=== PATIENT | female | born 1940 | race Two or more races ===

== ENCOUNTER 2016-05-22 11:01 | Inpatient (IN) | payer MEDICARE, MEDICAID ==
[~2016-05-22] VITALS: Ht 154.9 cm; Wt 49.4 kg
[~2016-05-22 11:01] MED LIST: ACETAMINOPHEN-1 EAC1 ORAL; ASPIRIN EC81 MG ORAL; DEXILANT60 MG ORAL; ECOTRIN81 MG PO; IBUPROFEN600 MG ORAL; LOVASTATIN20 MG ORAL; MELOXICAM15 MG PO; METFORMIN HCL500 M1 ORAL; OMEPRAZOLE40 M1 ORAL; OSCAL D500 MG PO; OYSTER SHELL C500 MG PO; PENTOXIFYLLINE400 MG PO; TAMIFLU75 MG ORAL; VALSARTAN-HCTZ1 EAC1 ORAL; ZOFRAN4 M3 ORAL
[2016-05-22 12:15] VITALS: BP 109/45
--- NOTE | 2016-05-22 12:16 | Diagnostic Imaging Report ---
Indications: Shortness of breath Technique: Portable AP chest Findings: Comparison: August 1815 Cardiac silhouette remains normal in size. Pulmonary vasculature remains within normal limits. Lungs and pleura remain clear. Left lung volume remains decreased compared to right. Mild calcification and elongation of the aortic arch, sternal wires again noted. IMPRESSION: No evidence of acute disease, unchanged Stable chronic changes as described
--- NOTE | 2016-05-22 12:30 | Emergency Room Report ---
History of Present Illness General Chief Complaint: Dizziness Source: Patient Present Illness HPI 75 YOF with 2-3 weeks intermittent right arm, chest, and left arm pain associated with dizziness. Dizziness is intermittent, sometimes happens with ambulation/exertion. Currently asymptomatic. Denies fever/chills, cough, chest pain, SOB, abd pain. History of HTN. Denies other medical problems. Endorses "chest surgery" "long time ago." Not on ASA, Plavix. Allergies: Coded Allergies: No Known Allergies (Verified , 07/23/08) Patient History Past Medical History: HTN Past Surgical History: none Pertinent Family History: none Social History: Denies: alcohol use, drug use, smoking Now: No Immunizations: UTD Reviewed Nursing Documentation: PMH: Agreed, PSxH: Agreed Nursing Documentation-PMH Past Medical History: No History, Except For Hx Hypertension: Yes Hx Diabetes: Yes Hx Cancer: No Hx Gastrointestinal Problems: Yes - cholelithiasis Hx Neurological Problems: No Review of Systems All Other Systems: negative except mentioned in HPI Physical Exam Vital Signs Date Time Temp Pulse Resp B/P Pulse Ox O2 Delivery O2 Flow Rate FiO2 05/22/16 11:40 98.1 81 18 103/44 95 Room Air Sp02 EP Interpretation: reviewed, normal General Appearance: normal inspection, well appearing, no apparent distress, alert, GCS 15, non-toxic Head: normocephalic, atraumatic Eyes: bilateral eye EOMI, bilateral eye PERRL ENT: normal ENT inspection, hearing grossly normal, normal voice Neck: normal inspection, full range of motion, supple, no bony tend Respiratory: normal inspection, lungs clear, normal breath sounds, no respiratory distress, no retraction, no wheezing Cardiovascular #1: normal peripheral pulses, regular rate, rhythm, no edema Gastrointestinal: normal inspection, normal bowel sounds, non tender, soft, no guarding, no hernia Genitourinary: no CVA tenderness Musculoskeletal: normal inspection, back normal, normal range of motion, Khurram' s Sign negative Neurologic: normal inspection, alert, oriented x3, responsive, 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 I attest that this information is true, accurate and complete to the best of my knowledge. I understand that any falsification, omission, or concealment of material fact may subject me to administrative, civil, or criminal liability. This patient warrants hospital admission for extreme of age and has a condition that cannot be treated as outpatient. Diagnostic Impression: Primary Impression: Dizziness ER Course 75 YOF with intermittent dizzienss for 2-3 weeks. VSS. Afebrile. ECG is NSR. labs: Troponin0. Leuks normal. H&H nomral. SerumCr is baseline. CXR: No PTX, congestion effusion, PNA patient remains asymptomatic Dizziniess of unknown origin Endorsed to Dr Apodaca for med/surg admit at 133pm EKG Diagnostic Results Rate: normal Rhythm: NSR ST Segments: no acute changes ASA given to the pt in ED: No Rhythm Strip Diag. Results EP Interpretation: yes Rate: 74 Rhythm: NSR, no PVC's, no ectopy Chest X-Ray Diagnostic Results EP Interpretation: Yes Findings: no consolidation, no effusion, no pneumothorax, no acute cardiopulmonary disease Number of Views: 1 Last Vital Signs Date Time Temp Pulse Resp B/P Pulse Ox O2 Delivery O2 Flow Rate FiO2 05/22/16 11:40 98.1 81 18 103/44 95 Room Air Status: improved Disposition: ADMITTED INPATIENT Referrals: NON PHYSICIAN (PCP) CRISTI SCHULTE M.D. May 22, 2016 12:30
[2016-05-22 12:39] LABS: BASOPHILS % (AUTO) 1.1 % (0.0-2.0); EOSINOPHILS % (AUTO) 0.1 % (0.0-3.0); LYMPHOCYTES % (AUTO) 23.9 % (20.0-45.0); MEAN CORPUSCULAR HEMOGLOBIN 36.1 PG (27.0-31.0); MEAN CORPUSCULAR VOLUME 103 FL (80-99); MEAN PLATELET VOLUME 8.3 FL (6.5-10.1); MONOCYTES % (AUTO) 15.1 % (1.0-10.0); NEUTROPHILS % (AUTO) 59.7 % (45.0-75.0); PLATELET COUNT 154 K/UL (150-450); RED BLOOD COUNT 3.27 M/UL (4.20-5.40); WHITE BLOOD COUNT 7.8 K/UL (4.8-10.8)
[2016-05-22 12:50] LABS: ALANINE AMINOTRANSFERASE 13 U/L (3-33); ALBUMIN/GLOBULIN RATIO 1.4 (1.0-2.7); ANION GAP 18 (5-15); ASPARTATE AMINO TRANSFERASE 9 U/L (5-40); CALCIUM 8.8 mg/dL (8.6-10.2); CARBON DIOXIDE 22 mEQ/L (20-30); CHLORIDE 96 mEQ/L (98-107); CREATININE 1.2 mg/dL (0.5-0.9); HEMOLYSIS 4; POTASSIUM 3.4 mEQ/L (3.4-4.9); SODIUM 136 mEQ/L (135-145)
[2016-05-22 12:51] LABS: TROPONIN I < 0.30 ng/mL (<=0.30)
[2016-05-22 13:01] LABS: CKMB 1.6 ng/mL (< 3.8)
[2016-05-22] MEDS ORDERED: Morphine Sulfate 2mg/ml Inj IVP PRN (15:00)
[2016-05-22] MEDS ORDERED: Nitroglycerin Subl 0.4mg tab (Bottle Of 25) SL PRN (15:00)
[2016-05-22] MEDS ORDERED: DuoNeb 0.5-3(2.5)mg/3ml neb HHN PRN (15:00)
[2016-05-22] MEDS ORDERED: Promethazine/Codeine 5ml UD ORAL PRN ×2 (15:00→15:45)
[2016-05-22] MEDS ORDERED: Mylanta II UD 30ml ORAL PRN (15:00)
[2016-05-22] MEDS ORDERED: LORazepam Inj 2mg/ml 1ml IV PRN (15:00)
--- NOTE | 2016-05-22 15:52 | History and Physical ---
History of Present Illness General Date patient seen: May 22, 2016 Reason for Hospitalization: Dizziness Present Illness HPI 75 year old female with hx of HTN, DM, presented to [facility] [place] with CC of 2-3 weeks intermittent right arm, chest, and left arm pain associated with dizziness. Dizziness is intermittent, sometimes happens with ambulation/exertion. Patient also was complaining of flu like symptoms and dry cough and being feverish at times. Allergies: Coded Allergies: No Known Allergies (Verified , 07/23/08) Medication History Scheduled Aspirin Ec* (Aspirin Ec*), 81 MG ORAL DAILY Calcium Carbonate (Oyster Shell Calcium), 500 MG PO BID, (Reported) Ibuprofen* (Motrin*), 400 MG ORAL FOUR TIMES A DAY Lovastatin (Lovastatin), 20 MG ORAL BEDTIME, (Reported) Metformin Hcl* (Metformin Hcl*), 500 MG ORAL TWICE A DAY, (Reported) Valsartan/Hydrochlorothiazide 160-12.5 (Valsartan-Hctz 160-12.5 Mg Tab), 1 TAB ORAL DAILY, (Reported) Patient History Healthcare decision maker Resuscitation status Advanced Directive on File Past Medical/Surgical History Past Medical/Surgical History: (1) DM (diabetes mellitus screen) (2) HTN (hypertension) (3) Hx of cholecystectomy (4) S/P CABG (coronary artery bypass graft) (5) Cerebrovascular accident (CVA) Review of Systems All Other Systems: negative except mentioned in HPI Physical Exam General Appearance: WD/WN Lines, tubes and drains: peripheral, central line HEENT: normocephalic, atraumatic Neck: non-tender, normal alignment Respiratory/Chest: chest wall non-tender, lungs clear Breasts: no masses Cardiovascular/Chest: normal peripheral pulses, normal rate Abdomen: normal bowel sounds, non tender Genitourinary/Rectal: normal genital exam, normal rectal exam Extremities: normal range of motion Skin Exam: normal pigmentation Neurologic: 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 II-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 grossly normal Last 24 Hour Vital Signs Date Time Temp Pulse Resp B/P Pulse Ox O2 Delivery O2 Flow Rate FiO2 05/22/16 13:28 60 16 116/57 98 Room Air 05/22/16 12:15 98.6 70 12 109/45 100 Room Air 05/22/16 11:40 98.1 81 18 103/44 95 Room Air Laboratory Tests Test 05/22/16 12:25 White Blood Count 7.8 K/UL (4.8-10.8) Red Blood Count 3.27 M/UL (4.20-5.40) L Hemoglobin 11.8 G/DL (12.0-16.0) L Hematocrit 33.8 % (37.0-47.0) L Mean Corpuscular Volume 103 FL (80-99) H Mean Corpuscular Hemoglobin 36.1 PG (27.0-31.0) H Mean Corpuscular Hemoglobin Concent 35.0 G/DL (32.0-36.0) Red Cell Distribution Width 13.0 % (11.6-14.8) Platelet Count 154 K/UL (150-450) Mean Platelet Volume 8.3 FL (6.5-10.1) Neutrophils (%) (Auto) 59.7 % (45.0-75.0) Lymphocytes (%) (Auto) 23.9 % (20.0-45.0) Monocytes (%) (Auto) 15.1 % (1.0-10.0) H Eosinophils (%) (Auto) 0.1 % (0.0-3.0) Basophils (%) (Auto) 1.1 % (0.0-2.0) Sodium Level 136 mEQ/L (135-145) Potassium Level 3.4 mEQ/L (3.4-4.9) Chloride Level 96 mEQ/L (98-107) L Carbon Dioxide Level 22 mEQ/L (20-30) Anion Gap 18 (5-15) H Blood Urea Nitrogen 20 mg/dL (7-23) Creatinine 1.2 mg/dL (0.5-0.9) H Estimat Glomerular Filtration Rate mL/min (>60) Glucose Level 145 mg/dL (74-106) H Calcium Level 8.8 mg/dL (8.6-10.2) Total Bilirubin 0.4 mg/dL (0.0-1.2) Aspartate Amino Transf (AST/SGOT) 9 U/L (5-40) Alanine Aminotransferase (ALT/SGPT) 13 U/L (3-33) Alkaline Phosphatase 56 U/L (35-104) Total Creatine Kinase 110 U/L (26-140) Creatine Kinase MB 1.6 ng/mL (< 3.8) Creatine Kinase MB Relative Index 1.4 Troponin I < 0.30 ng/mL (<=0.30) Total Protein 7.0 g/dL (6.6-8.7) Albumin 4.1 g/dL (3.5-5.2) Globulin 2.9 g/dL Albumin/Globulin Ratio 1.4 (1.0-2.7) Height (Feet): 5 Weight (Pounds): 109 Medications Current Medications Medications (Trade) Dose Ordered Sig/Alyse Route PRN Reason Start Time Stop Time Status Last Admin Dose Admin Acetaminophen (Tylenol) 650 mg Q4H PRN ORAL fever>100.5 05/22/16 14:00 06/21/16 13:59 Al Hydroxide/Mg Hydroxide (Mylanta II) 30 ml Q6H PRN ORAL dyspepsia 05/22/16 15:00 06/21/16 14:59 Albuterol/ Ipratropium (DuoNeb 0.5-3(2.5)mg/3ml) 3 ml Q4H PRN HHN Shortness of Breath 05/22/16 15:00 05/27/16 14:59 Clonidine HCl (Catapres) 0.1 mg Q4H PRN ORAL For High Blood Pressure 05/22/16 15:00 06/21/16 14:59 Dextrose (Dextrose 50%) STAT PRN IV Hypoglycemia 05/22/16 15:00 06/21/16 14:59 Dextrose/Sodium Chloride (D5 0.45% NS) 1,000 ml @ 50 mls/hr Q20H IV 05/22/16 16:00 06/21/16 15:59 Heparin Sodium (Porcine) (Heparin 5000 units/ml) 5,000 units EVERY 12 HOURS SUBQ 05/22/16 21:00 06/21/16 20:59 Insulin Aspart BEFORE MEALS AND HS SUBQ 05/22/16 16:30 06/21/16 16:29 Lorazepam (Ativan 2mg/ml 1ml) 0.5 mg Q4H PRN IV For Anxiety 05/22/16 15:00 05/29/16 14:59 Morphine Sulfate (Morphine Sulfate) 1 mg Q4H PRN IVP For Pain 7-10 05/22/16 15:00 05/29/16 14:59 Nitroglycerin (Ntg) 0.4 mg Q5M X 3 DOSES PRN SL Prn Chest Pain 05/22/16 15:00 06/21/16 14:59 Ondansetron HCl (Zofran) 4 mg Q6H PRN IVP Nausea & Vomiting 05/22/16 15:00 06/21/16 14:59 Polyethylene Glycol (Miralax) 17 gm HSPRN PRN ORAL Constipation 05/22/16 21:00 06/21/16 20:59 Promethazine HCl/ Codeine (Phenergan with Codeine) 5 ml Q4H PRN ORAL For Cough 05/22/16 15:00 06/21/16 14:59 Temazepam (Restoril) 15 mg HSPRN PRN ORAL Insomnia 05/22/16 21:00 05/29/16 20:59 Assessment/Plan Problem List: (1) Bronchitis ICD Codes: J40 - Bronchitis, not specified as acute or chronic SNOMED: 47844317 (2) Multiple complaints ICD Codes: R68.89 - Other general symptoms and signs SNOMED: 38458318 (3) Dizziness ICD Codes: R42 - Dizziness and giddiness SNOMED: 154797599, 744637699 (4) HTN (hypertension) ICD Codes: I10 - Essential (primary) hypertension SNOMED: 43732311 (5) DM (diabetes mellitus screen) ICD Codes: Z13.1 - Encounter for screening for diabetes mellitus SNOMED: 737445720, 879455665 (6) S/P CABG (coronary artery bypass graft) ICD Codes: Z95.1 - Presence of aortocoronary bypass graft SNOMED: 031419105, 505228677 Assessment/Plan respiratory treatment IV antibiotics check cultures/ sputum MRI of brain. neuro evaluation , Dr. Santoro notified. BRETT NERI May 22, 2016 15:51
[2016-05-22 16:00] VITALS: BP 103/49
[2016-05-22] MEDS: NovoLOG Insulin Flexpen SUBQ SCH ×2 (16:30→20:55)
[2016-05-22] MEDS: D5 1/2NS 1,000 ML IV SCH (17:29)
[2016-05-22] MEDS: DuoNeb 0.5-3(2.5)mg/3ml neb HHN SCH (19:34)
[2016-05-22] MEDS: Heparin 5000 units/ml inj SUBQ SCH (20:52)
[2016-05-22] MEDS ORDERED: Miralax 17gm pkt ORAL PRN (21:00)
[2016-05-22 21:02] VITALS: BP 105/48
[2016-05-23] VITALS: BP 119/54
[2016-05-23] MEDS: DuoNeb 0.5-3(2.5)mg/3ml neb HHN SCH ×3 (01:17→13:19)
[2016-05-23 04:00] VITALS: BP 109/51
[2016-05-23] MEDS: NovoLOG Insulin Flexpen SUBQ SCH ×3 (06:37→16:30)
[2016-05-23 07:00] LABS: BASOPHILS % (AUTO) 0.9 % (0.0-2.0); EOSINOPHILS % (AUTO) 0.2 % (0.0-3.0); LYMPHOCYTES % (AUTO) 22.3 % (20.0-45.0); MEAN CORPUSCULAR HEMOGLOBIN 35.2 PG (27.0-31.0); MEAN CORPUSCULAR HGB CONC 33.6 G/DL (32.0-36.0); MEAN CORPUSCULAR VOLUME 105 FL (80-99); MEAN PLATELET VOLUME 8.1 FL (6.5-10.1); MONOCYTES % (AUTO) 10.7 % (1.0-10.0); NEUTROPHILS % (AUTO) 65.8 % (45.0-75.0); PLATELET COUNT 144 K/UL (150-450); RED BLOOD COUNT 3.27 M/UL (4.20-5.40); RED CELL DISTRIBUTION WIDTH 12.7 % (11.6-14.8); WHITE BLOOD COUNT 6.9 K/UL (4.8-10.8)
[2016-05-23 07:03] LABS: PROTHROMBIN TIME 10.4 SEC (9.30-11.50)
[2016-05-23 07:38] LABS: ALANINE AMINOTRANSFERASE 11 U/L (3-33); ALBUMIN/GLOBULIN RATIO 1.4 (1.0-2.7); ANION GAP 15 (5-15); ASPARTATE AMINO TRANSFERASE 9 U/L (5-40); CARBON DIOXIDE 25 mEQ/L (20-30); CHLORIDE 99 mEQ/L (98-107); CHOLESTEROL 169 mg/dL (< 200); CHOLESTEROL/HDL RATIO 2.6 (3.3-4.4); HEMOLYSIS 3; LDL CHOLESTEROL (CALC.) 88 mg/dL (60-99); POTASSIUM 3.8 mEQ/L (3.4-4.9); SODIUM 139 mEQ/L (135-145); TOTAL PROTEIN 6.8 g/dL (6.6-8.7)
[2016-05-23 08:15] VITALS: BP 111/50
[2016-05-23] MEDS: Heparin 5000 units/ml inj SUBQ SCH (09:00)
[2016-05-23 12:15] VITALS: BP 139/52
[2016-05-23] MEDS: D5 1/2NS 1,000 ML IV SCH (12:35)
--- NOTE | 2016-05-23 13:35 | Diagnostic Imaging Report ---
Indication: Dizziness, vertigo, right-sided weakness Technique: sagittal T1 fast spin echo, axial T1 and T2 FLAIR PROPELLER, axial T2 FS PROPELLER, T2* GRE, axial diffusion weighted images, post contrast axial T1 FLAIR PROPELLER images. ADC and exponential ADC maps generated Comparison: 12/16/2015 Findings: . No abnormal areas of restricted diffusion to suggest acute infarction. No acute hemorrhage or edema. Punctate foci of susceptibility artifact are seen in the right frontal cortex, left lateral ventricular subependymal region, right inferior frontal lobe, all also evident previously. No mass effect nor midline shift. No abnormal contrast enhancement. There is minimal age-related enlargement of the ventricles and extra-axial CSF spaces. There is minimal periventricular deep white matter chronic ischemic change noted. Visualized orbits and sinuses are unremarkable. No significant interim change. Impression: Negative for acute intracranial bleed, mass effect, infarct, or contrast enhancing lesion Foci of old microhemorrhage seen on the GRE images, also previously reported. Mild age-related changes as described No significant change since prior study of 12/26/2015
--- NOTE | 2016-05-23 15:19 | Cardiology Report ---
APPROVED REPORT EXAM: Two-dimensional and M-mode echocardiogram with Doppler and color Doppler. INDICATION Left ventricular function M-Mode DIMENSIONS IVSd0.9 (0.7-1.1cm)Left Atrium (MM)3.2 (1.6-4.0cm) LVDd3.8 (3.5-5.6cm)Aortic Root2.3 (2.0-3.7cm) IVSs0.9 cm LVDs2.6 (2.5-4.0cm) PWs1.0 cm Normal left ventricular chamber size, systolic function and wall motion. Left ventricular ejection fraction estimated to be 60-65 %. Mild left ventricular hypertrophy. No evidence of pericardial fat or effusion. All other cardiac chamber sizes are within normal limits. Focal aortic valve sclerosis with adequate cusp excursion Thickened mitral valve leaflets with normal excursion. Mild mitral annulus and aortic root calcification. Pulmonic valve not well visualized. Normal tricuspid valve structure. IVC is normal in size with minimal physiologic collapse. RA pressure of 10mmHg. A color flow and spectral Doppler study was performed and revealed: Trace aortic regurgitation. Trace mitral regurgitation. Left ventricular diastolic dysfunction grade 1. Moderate tricuspid regurgitation. Tricuspid systolic velocities suggests peak right ventricular systolic pressure of 31 mmHg
[2016-05-23 16:31] VITALS: BP 112/54
--- NOTE | 2016-05-23 17:53 | Consultation ---
Consult Note Consult Note NEUROLOGY CONSULTATION: Full note dictated #[id number] Labyrinthine vertigo - Most probably BPV REC: Will arrington q AM and q HS. Mateo Santoro M.D., M.S.P.H. MATEO SANTORO May 23, 2016 17:53
[2016-05-23] MEDS ORDERED: D5 1/2NS 1000ml IV ONE (19:14)
[2016-05-23] MEDS ORDERED: Tubing IV Secondary IV ONE (19:14)
--- NOTE | 2016-05-24 01:59 | Consultation ---
DATE OF CONSULTATION: 05/23/2016 NEUROLOGY CONSULTATION CONSULTING PHYSICIAN: Rio Santoro M.D. REQUESTING PHYSICIAN: Jordon Apodaca M.D. HISTORY: The patient is a 75-year-old right-handed lady, who does have a past history of hypertension, diabetes mellitus, and coronary artery disease, status post coronary artery bypass graft. She was functioning relatively well until a few days ago when she started to have a feeling of being unwell, feverish, had a dry cough and in addition, started to have episodes of dizziness. The dizziness that she has is a sensation of the room spinning. The room spins for a few seconds and then stopped spontaneously. She denies any associated symptoms like blurry vision, double vision, problems with speech, problems with language, weakness on one side or the other or numbness on one side or the other. Since the problem started, it seems to have improved, but not gone away. She denies any similar symptoms in the past. PAST MEDICAL HISTORY: Significant for hypertension, diabetes mellitus, coronary artery disease, and recent flu-like syndrome. PRESENT MEDICATIONS: Include levofloxacin, heparin for DVT prophylaxis, MiraLAX, Restoril, DuoNeb, aspart insulin, morphine as needed, Zofran as needed, Ativan as needed, Mylanta as needed, nitroglycerin as needed, clonidine as needed, Phenergan with codeine as needed, and Tylenol as needed. FAMILY HISTORY: Nothing significant. PERSONAL HISTORY: Home, she lives with family. 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 HABITS: She denies the use of alcohol, tobacco, or illicit drugs. PHYSICAL EXAMINATION: GENERAL: She is a well-developed, well-nourished, pleasant lady, lying in bed, in no acute distress. VITAL SIGNS: Pulse 80 per minute and regular, blood pressure 112/54 mmHg, respirations 20 per minute, and temperature 98.1 degrees Fahrenheit. HEENT: Head is normocephalic and atraumatic. EENT examination denied. NECK: No neck rigidity was observed. NEUROLOGIC: MENTAL STATUS: She was alert and awake. She was oriented to person, place, and time. She was able to recall 3/3 words immediately after 1 minute and after 3 minutes. She was able to remember presidents, Trump and Obama, but could not remember presidents prior to that. Her mathematical skills were minimally impaired. Her visuospatial function was also minimally impaired. SPEECH: She had no dysarthria. Language, she had no aphasia taking into account that [place] is her primary language. CRANIAL NERVE II: The visual lombardo were intact on confrontation testing. CRANIAL NERVES III, IV AND : The external ocular movements were full and the pupil is 3 mm in diameter, equal, round, regular, and reactive to light. CRANIAL NERVE V: She had normal facial sensations and the temporalis, masseters, and pterygoids function normally. CRANIAL NERVE VII: She had normal facial expressions. No facial asymmetry. CRANIAL NERVE VIII: She was able to hear well bilaterally and there is no nystagmus. CRANIAL NERVE IX: The palate moved symmetrically on phonation. CRANIAL NERVE X: She had no hoarseness of voice. CRANIAL NERVE XI: The sternocleidomastoids and trapezii function normally. CRANIAL NERVE XII: The tongue was in the midline without any fasciculations or atrophy. MOTOR SYSTEM: The tone was normal in all four extremities. Examination of muscle mass revealed no focal wasting. Examination of power revealed grade 5/5 power in all muscle groups tested. SENSORY EXAMINATION: She had intact sensations to pinprick, light touch, and graphesthesia. COORDINATION: She performed well on urazkh-ad-bcfj and qejm-hn-wkhn testing. On Romberg test, she swayed but did not fall to one side or the other. REFLEXES: Trace positive and bilaterally symmetrical at the biceps, triceps, brachioradialis, and knees, 0 at both ankles. The plantar responses were flexor bilaterally. STANCE: She stood up with support. Gait, she took a few steps with support. Hallpike maneuver, when her head was turned to the left side, no nystagmus or vertigo was seen. When the head was turned to the right side, again no nystagmus or vertigo was seen, however, when she was made to sit up after the maneuver, she had a few beats of nystagmus and vertigo that lasted for approximately 5 seconds. The procedure did not reproduce the phenomenon. DIAGNOSTIC IMPRESSION: 1. The patient is a 75-year-old right-handed lady, who does have a past history of hypertension, diabetes mellitus, coronary artery disease who recently has felt ill with a possible viral syndrome and a few days ago, started to have episodes of a vertiginous feeling, especially when she would sit up from a lying down position. The problem has continued but has improved over time. 2. On neurological examination at this time, she does have problems with recent and remote memory, globally diminished reflexes, and she did have a few beats of nystagmus associated with vertigo lasting for approximately 5 seconds when she was made to sit up following the Hallpike maneuver. 3. Laboratory data obtained thus far revealed a mild anemia with hemoglobin of 11.5, mildly elevated blood sugar at 142, a normal TSH. 4. The MRI scan of the brain performed on 05/22/2016 reveals old mild deep white matter disease and hemosiderin staining, but no acute pathology. 5. The patient's history and neurological examination are most compatible with labyrinthine vertigo. In this case, the labyrinthine vertigo is most probably indicative of a syndrome of benign positional vertigo. RECOMMENDATIONS: 1. The patient was given an explanation of the above-mentioned findings. 2. She was instructed on how to perform Miner-Daroff exercises and was told to perform 5 repetitions every morning and 5 repetitions every night. 3. The treatment of other intercurrent medical problems as per Dr. Apodaca. Thank you for entrusting me with the care of the patient. Rio Santoro M.D. DR: MELY JOB#: [id number] CC:
--- NOTE | 2016-05-24 21:11 | Discharge Summary ---
Discharge Summary Hospital Course Date of Admission May 22, 2016 at 12:10 Date of Discharge May 23, 2016 at 19:15 Admitting Diagnosis Dizziness HPI Lilliam Pablo is a 75 year old female who was admitted on May 22, 2016 at 12: 10 for Dizziness Hospital Course [id number] Discharge Discharge Disposition Patient was discharged to Home (01) Discharge Diagnoses: Deann Lewis NP May 24, 2016 21:11
--- NOTE | 2016-05-24 23:00 | Discharge Summary 2 SIG ---
DATE OF ADMISSION: 05/22/2016 DATE OF DISCHARGE: 05/23/2016 UPHOLSTERED GOODS CRAFTER: Rio Santoro M.D. BRIEF HOSPITAL COURSE: The patient is a 75-year-old female with history of hypertension, diabetes mellitus, presented to [place] with complaints of two to three weeks intermittent right arm, chest, and left arm pain associated with dizziness. Dizziness was described to be intermittent. It sometimes happens with ambulation or exertion. The patient also complained of flu-like symptoms with dry cough and being feverish at times. Chest x-ray showed no pneumothorax, congestion, or pneumonia. At ED, the patient remained symptomatic with dizziness of unknown origin. She was then admitted for further neurologic workup. Dr. Santoro was consulted. Dizziness was described as room spinning for few seconds and then stopped spontaneously. She recently had a viral syndrome and started to have episodes of vertiginous feeling, especially when she would sit up from a lying down position. On neurologic examination, she does have problems with recent and remote memory, globally diminished reflexes, and she did have a few beats of nystagmus associated with vertigo lasting for approximately five seconds when she was made to sit up following a Hallpike maneuver. MRI of the brain performed revealed old mild deep white matter disease and hemosiderin staining, but no acute pathology. The patient's history and neurological examination, most compatible with labyrinthine vertigo. She was given explanation of above-mentioned findings and was instructed on how to perform Miner-Daroff exercises and was told to perform five repetitions every morning and five repetitions every night. Due to rapid unexpected improvement in the patient's symptoms, she was discharged home to follow up as outpatient. FINAL DIAGNOSES: 1. Dizziness secondary to labyrinthine vertigo. 2. Acute on chronic bronchitis. 3. Hypertension. 4. Diabetes mellitus. 5. Status post coronary artery bypass graft. Jordon Apodaca M.D. I have been assigned to dictate discharge summary on this account and I was not involved in the patient's management. Deann Lewis N.P. DR: IZZY JOB#: [id number] CC:
--- NOTE | 2016-05-25 12:00 | Cardiology Report ---
APPROVED REPORT EKG Measurement Heart [id number] TN [id number] Normal sinus rhythm with sinus arrhythmia Possible Left atrial enlargement Borderline ECG
--- NOTE | 2016-05-25 21:45 | Diagnostic Imaging Report ---
APPROVED REPORT CPT Code: 95764 Symptoms Comments: Pain RIGHT LEG: Iliac and common femoral arteries waveform analysis is within normal limits at rest. 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 Reconstitution is seen in the distal superficial femoral artery. The popliteal artery is patent. The tibioperoneal trunk was not well visualized. The distal posterior tibial, anterior tibial and dorsalis pedis arteries are patent. Doppler waveform analysis is monophasic consistent, with severe ischemia at rest. LEFT LEG: Iliac and common femoral arteries waveform analysis is within normal limits at rest. 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 Reconstitution is seen in the distal superficial femoral artery. The popliteal artery is patent. The tibioperoneal trunk was not well visualized. The distal posterior tibial, anterior tibial and dorsalis pedis arteries are patent. Doppler waveform analysis is monophasic consistent, with severe ischemia at rest. ROSALINO Kasper was notified of abnormal results at 1120 hours.
--- NOTE | 2016-05-25 21:46 | Diagnostic Imaging Report ---
APPROVED REPORT CPT Code: 26068 Present Symptoms Comments: Pain BILATERAL: Imaging reveals a patent deep venous system bilaterally. There is no evidence of thrombus within the femoral, popliteal or tibial segments. Doppler indicates normal spontaneous flow within these segments. The greater saphenous veins were not well visualized.
--- NOTE | 2016-05-25 21:46 | Diagnostic Imaging Report ---
APPROVED REPORT CPT Code: 92159 Vascular Symptoms CVA/TIA: Doppler Spectral Velocity Analysis RightLeft RIGHT SIDE: CCA - Imaging reveals no significant plaque in the common carotid artery. ICA arteries. The Doppler signal indicates the degree of stenosis is minimal (30%) in the internal carotid, and (20%) in the external carotid arteries. VERTEBRAL - The vertebral artery is patent, without evidence of stenosis or steal. LEFT SIDE: CCA - Imaging reveals no significant plaque in the common carotid artery. ICA arteries. The Doppler signal indicates the degree of stenosis is minimal (30%) in the internal carotid, and (20%) in the external carotid arteries. VERTEBRAL - The vertebral artery is patent, without evidence of stenosis or steal.
== END 2016-05-23 19:15 | disposition home or self-care (01) | DRG 149 ==
LOC: EMR 11:59 → 4E 12:10 → EDBEDREQSVC 12:36 → EDBEDREQ 12:36
DX: H81.09 Meniere's disease, unspecified ear (principal); J20.9 Acute bronchitis, unspecified; E11.9 Type 2 diabetes mellitus without complications; J42 Unspecified chronic bronchitis; I10 Essential (primary) hypertension; Z95.1 Presence of aortocoronary bypass graft; Z86.73 Personal history of transient ischemic attack (TIA), and cerebral infarction without residual deficits; Z79.4 Long term (current) use of insulin
CPT/HCPCS: 36415; 70553; 71010; 80053; 80061; 82550; 82553; 82962; 84443; 84484; 85025; 85610; 85730; 87070; 87205; 93005; 93306; 93880; 93925; 93970; 94640; 94664; A9585; J1815; J7620

== ENCOUNTER 2017-09-03 15:02 | Emergency (ER) | payer MEDICARE, MEDICAID ==
[~2017-09-03] VITALS: Ht 149.9 cm; Wt 49.9 kg
[2017-09-03] MEDS ORDERED: ATORVASTATIN CA10 MG ORAL (15:19)
[2017-09-03] MEDS ORDERED: CIPROFLOXACIN500 M2 ORAL (15:19)
[2017-09-03] MEDS ORDERED: TRADJENTA5 MG PO (15:19)
[2017-09-03] MEDS ORDERED: LYRICA75 M1 ORAL (15:19)
[2017-09-03] MEDS ORDERED: VITAMIN D400 INTLU ORAL (15:19)
[2017-09-03 15:56] VITALS: BP 125/68
--- NOTE | 2017-09-03 16:39 | Emergency Room Report ---
History of Present Illness General Chief Complaint: Pain Source: Patient, Family Member Present Illness HPI 76-year-old female presents to the emergency department complaining of 7 out of 10 in severity right-sided body pain. Patient reports pain is primarily in the right upper extremity and the right lower extremity. Patient states onset of pain was progressive since Saturday she states her pain is exacerbated upon walking and the most painful area that she currently has is her right ankle which also she states is swollen. Patient denies trauma or fall she states that she has history of CABG, diabetes, gallstones, TIA, high blood pressure and hyperlipidemia. Patient denies skin color changes or changes in temperature of the affected extremities. Patient denies weakness in the affected extremities. Patient denies head trauma, difficulty with speech, visual changes, nausea/vomiting, dizziness. Patient states that she has had similar pain in the past she describes her pain as burning sensation and tenderness to the touch. Denies CP, Palpitations, LOC, AMS, dizziness, Changes in Vision, paresthesias, or a sudden severe headache. She denies neck or back pain. Allergies: Coded Allergies: No Known Allergies (Verified , 07/23/08) Patient History Past Medical History: see triage record Past Surgical History: none Pertinent Family History: none Immunizations: UTD Reviewed Nursing Documentation: PMH: Agreed; PSxH: Agreed Nursing Documentation-PMH Hx Hypertension: Yes Hx Diabetes: Yes Hx Cancer: No Hx Gastrointestinal Problems: Yes - cholelithiasis Hx Neurological Problems: No Review of Systems All Other Systems: negative except mentioned in HPI Physical Exam Vital Signs Date Time Temp Pulse Resp B/P (MAP) Pulse Ox O2 Delivery O2 Flow Rate FiO2 09/03/17 15:13 98.6 79 17 127/65 96 Room Air 98.6 Sp02 EP Interpretation: reviewed, normal General Appearance: no apparent distress, alert, GCS 15, non-toxic Head: normocephalic, atraumatic Eyes: bilateral eye normal inspection, bilateral eye PERRL ENT: hearing grossly normal, normal voice Neck: full range of motion, no bony tend Respiratory: chest non-tender, lungs clear, normal breath sounds, speaking full sentences Cardiovascular #1: regular rate, rhythm, no edema, normal capillary refill Gastrointestinal: non tender, soft Musculoskeletal: back normal, gait/station normal, normal range of motion, swelling - Right lateral ankle TTP, tender - TTP to superficial palpation grossly/generalized throughout the Right UE and Left LE, moderate ttp in the right ankle. no obvious deformities or bruises. Pt. has FROM of joints. Pt. also has ttp to the right heel. Neurologic: alert, oriented x3, responsive, motor strength/tone normal - equal bilaterally, sensory intact, speech normal, grossly normal Psychiatric: judgement/insight normal Skin: normal color, no rash, warm/dry, well hydrated Medical Decision Making PA Attestation Dr. Arias is my supervising Physician whom patient management has been discussed with. Diagnostic Impression: Primary Impression: Neuropathic pain of upper extremity Additional Impressions: Neuropathic pain of right lower extremity Ankle pain, right Qualified Codes: M25.571 - Pain in right ankle and joints of right foot ER Course 76-year-old female presents to the emergency department complaining of 7 out of 10 in severity right-sided body pain. Patient reports pain is primarily in the right upper extremity and the right lower extremity. Patient states onset of pain was progressive since Saturday she states her pain is exacerbated upon walking and the most painful area that she currently has is her right ankle which also she states is swollen. Patient denies trauma or fall she states that she has history of CABG, diabetes, gallstones, TIA, high blood pressure and hyperlipidemia. Patient denies skin color changes or changes in temperature of the affected extremities. Patient denies weakness in the affected extremities. Patient denies head trauma, difficulty with speech, visual changes, nausea/vomiting, dizziness. Patient states that she has had similar pain in the past she describes her pain as burning sensation and tenderness to the touch. Denies CP, Palpitations, LOC, AMS, dizziness, Changes in Vision, paresthesias, or a sudden severe headache. She denies neck or back pain. Ddx considered but are not limited to Fracture, dislocation, contusion, Sprain/ Strain/Spasm,neuropathic pain, arthritic or rheumatoid pain, Vascular occlusion just to name a few. Vital signs: are WNL, pt. is afebrile H&PE are most consistent with musculoskeletal injury will perform imaging to r/ o fractures/dislocations. No neurological deficits noted. No midline back pain. No weakness. ORDERS: - X-ray's: Negative ED INTERVENTIONS: - Gabapentin PO DISCHARGE: At this time pt. is stable for d/c to home. Will provide printed patient care instructions, and any necessary prescriptions. Care plan and follow up instructions have been discussed with the patient prior to discharge. Other X-Ray Diagnostic Results Other X-Ray Diagnostic Results #1: X-Ray ordered: Right Ankle # of Views/Limited Vs Complete: 3 View Indication: Pain EP Interpretation: Yes PA Xray: Interpretation reviewed, by supervising MD, and agrees with findings. Interpretation: no dislocation, no fractures, other - mild soft tissue swelling to the lateral ankle Impression: Other - Soft tissue swelling. Electronically Signed by: Anat Boyd PA-C Other X-Ray Diagnostic Results #2: X-Ray ordered: Right Foot # of Views/Limited Vs Complete: 3 View Indication: Pain EP Interpretation: Yes PA Xray: Interpretation reviewed, by supervising MD, and agrees with findings. Interpretation: no dislocation, no soft tissue swelling, no fractures Impression: No acute disease Electronically Signed by: Anat Boyd PA-C Last Vital Signs Date Time Temp Pulse Resp B/P (MAP) Pulse Ox O2 Delivery O2 Flow Rate FiO2 09/03/17 15:56 98.6 78 16 125/68 96 Room Air 98.6 Disposition: HOME, SELF-CARE Condition: Stable Scripts Acetaminophen* (TYLENOL EXTRA STRENGTH*) 500 Mg Tablet 500 MG ORAL Q6H PRN for Mild Pain/Temp > 100.5, #20 TAB 0 Refills Prov: Anat Boyd 09/03/17 Gabapentin* (GABAPENTIN*) 100 Mg Capsule 100 MG ORAL THREE TIMES A DAY, #21 CAP Prov: Anat Boyd 09/03/17 Referrals: NON PHYSICIAN (PCP) Additional Instructions: Take medications as directed. Follow up with a Primary Care Provider in 3-5 days, even if your symptoms have resolved. --Please review list of primary care clinics, if you do not already have a primary care provider Return sooner to ED if new symptoms occur, or current symptoms become worse. - Please note that this Emergency Department Report was dictated using [employer] representative technology software, occasionally this can lead to erroneous entry secondary to interpretation by the dictation equipment. Anat Boyd September 03, 2017 16:39
[2017-09-03] MEDS ORDERED: Ketorolac 30mg Inj IM ONE (16:45)
[2017-09-03] MEDS ORDERED: GABAPENTIN100 MG ORAL (17:35)
[2017-09-03] MEDS ORDERED: TYLENOL EXTRA500 MG ORAL (17:35)
[2017-09-03 17:48] VITALS: BP 128/69
[2017-09-03 17:52] VITALS: BP 128/69
--- NOTE | 2017-09-04 10:31 | Diagnostic Imaging Report ---
Indication: Pain Comparison: None Findings: 3 views of the right foot were obtained. No acute fractures, malalignment, erosions or periostitis are identified. Soft tissues are unremarkable. Impression: No acute findings.
--- NOTE | 2017-09-04 10:32 | Diagnostic Imaging Report ---
Indication: Pain right ankle ankle pain/trauma Comparison: None Findings: 3 views of the right ankle obtained. No acute fracture, malalignment, periostitis, or osteochondral defects are identified. Soft tissues are unremarkable. Impression: Negative examination
== END 2017-09-03 17:55 | disposition home or self-care (01) ==
LOC: EMR 15:27
DX: G56.91 Unspecified mononeuropathy of right upper limb (principal); G57.91 Unspecified mononeuropathy of right lower limb; M79.601 Pain in right arm; M79.604 Pain in right leg; M25.571 Pain in right ankle and joints of right foot; E11.9 Type 2 diabetes mellitus without complications; I10 Essential (primary) hypertension
CPT/HCPCS: 73610; 73630; 96372; 99284; J1885